=== PATIENT | male | born 1945 | race Caucasian/White ===

== ENCOUNTER 2023-12-27 07:06 | Day surgery (SDC) | payer OTHER ==
[~2023-12-27] VITALS: Ht 190.5 cm; Wt 88.5 kg
[2023-12-27] VITALS (11 sets, daily range): BP systolic 139–185; BP diastolic 64–77; PULSE 60–69; RESP 16–18
[~2023-12-27 07:06] MED LIST: 0.9%NACL 1000ML 1,000 ML IV ONE
[2023-12-27] MEDS ORDERED: LEVO150C4 PO (08:08)
[2023-12-27] MEDS ORDERED: ALLO300T2 PO (08:08)
[2023-12-27] MEDS ORDERED: METO-408 PO (08:08)
[2023-12-27] MEDS ORDERED: LOSA50TA64 PO (08:08)
[2023-12-27] MEDS ORDERED: FINA5TAB41 PO (08:08)
[2023-12-27] MEDS ORDERED: ATOR40TA69 PO (08:08)
[2023-12-27] MEDS ORDERED: FERR-63 PO (08:08)
[2023-12-27] MEDS ORDERED: HYDR50TA37 PO (08:08)
[2023-12-27] MEDS ORDERED: METF-444 PO (08:08)
[2023-12-27] MEDS ORDERED: AMLO-258 PO (08:08)
[2023-12-27] MEDS ORDERED: TAMS-1 PO (08:08)
[2023-12-27] MEDS ORDERED: POTA-202 PO (08:08)
[2023-12-27] MEDS ORDERED: FURO20TA4 PO (08:08)
[2023-12-27] MEDS ORDERED: PROPOFOL 10 MG/ML 20ML VIAL IV ONE ×2 (08:30→08:59)
[2023-12-27] MEDS ORDERED: EPINEPHRINE PF 1MG (1:1,000) 1 MG/ML AMP ONE (08:52)
[2023-12-27] MEDS ORDERED: GLUCAGON 1MG KIT 1 MG ML ONE (08:55)
== END 2023-12-27 10:20 | disposition home or self-care (01) ==
LOC: ENDO 07:06 → DAH 07:15 → ENDO 10:20
PROVIDERS: ATTEND Internal Medicine Gastroenterology
DX: R93.3 Abnormal findings on diagnostic imaging of other parts of digestive tract (principal); D50.9 Iron deficiency anemia, unspecified; K31.819 Angiodysplasia of stomach and duodenum without bleeding; K29.70 Gastritis, unspecified, without bleeding; K59.04 Chronic idiopathic constipation; R13.12 Dysphagia, oropharyngeal phase; I25.10 Atherosclerotic heart disease of native coronary artery without angina pectoris; I10 Essential (primary) hypertension; M19.90 Unspecified osteoarthritis, unspecified site; E11.9 Type 2 diabetes mellitus without complications; E03.9 Hypothyroidism, unspecified; E78.5 Hyperlipidemia, unspecified; I25.2 Old myocardial infarction; E66.9 Obesity, unspecified; Z79.899 Other long term (current) drug therapy; Z95.0 Presence of cardiac pacemaker; Z98.41 Cataract extraction status, right eye; Z98.42 Cataract extraction status, left eye; Z98.890 Other specified postprocedural states; Z86.010 Personal history of colon polyps; Z68.26 Body mass index [BMI] 26.0-26.9, adult; Z87.891 Personal history of nicotine dependence; Z86.73 Personal history of transient ischemic attack (TIA), and cerebral infarction without residual deficits
CPT/HCPCS: 44366; 82948 ×2; 44361; J7030 ×2; J1610; J0171; J2704 ×2; A4620; A4215 ×2; A4223; A7002; A4222; A4221; A4663; A4606; J3490